=== PATIENT | male | born 1940 | race Caucasian/White ===

== ENCOUNTER 2020-03-06 20:12 | Observation (INO) | payer MEDICARE, OTHER, SELFPAY ==
[2020-03-06 20:16] VITALS: BP 136/84; PULSE 95; RESP 18; TEMP 36.7; O2SAT 97; BMI 29.8
--- NOTE | 2020-03-06 20:25 | USR_ITS ---
PROCEDURE INFORMATION: Exam: US Duplex Left Lower Extremity Veins, Limited Exam date and time: 03/06/2020 8:55 PM Age: 79 years old Clinical indication: Pain; Leg, upper and leg, lower; Left; Additional info: Pain/swelling TECHNIQUE: Imaging protocol: Real-time Duplex ultrasound of the Left Lower Extremity with 2-D noble scale, color Doppler flow and spectral waveform analysis with image documentation. Limited exam focused on the left lower extremity veins. COMPARISON: No relevant prior studies available. FINDINGS: Left deep veins: Complete occlusive deep vein thrombosis in the left common femoral, profunda femoral, femoral, popliteal, peroneal, and posterior tibial veins. Left superficial veins: Unremarkable. Saphenofemoral junction is patent without thrombus. Soft tissues: Unremarkable. Other findings: Occlusive thrombus in the greater saphenous vein near the junction. US/[place] [id number] IMPRESSION: Extensive occlusive deep vein thrombosis throughout the left lower extremity.
[2020-03-06 20:29] VITALS: PULSE 93
[2020-03-06 20:33] VITALS: BP 136/84; PULSE 76; RESP 18; O2SAT 98
--- NOTE | 2020-03-06 20:34 | USR_ITS ---
PROCEDURE INFORMATION: Exam: US Bilateral Noninvasive Physiologic Study of the Lower Extremity Arteries, Limited Exam date and time: 03/06/2020 8:55 PM Age: 79 years old Clinical indication: Pain; Leg, lower; Left; Additional info: Pain/swelling TECHNIQUE: Imaging protocol: Bilateral Limited bilateral noninvasive physiologic studies of lower extremity arteries. Images were documented and archived. Exam is limited. COMPARISON: No relevant prior studies available. FINDINGS: Right Ankle-Brachial Index: Brachial artery: 135/70 mm Hg Posterior tibial artery: 135 Dorsalis pedis artery: 135 JAMILAH: 1.0 Left Ankle-Brachial Index: Brachial artery: 135/70 mm Hg Posterior tibial artery: 135 Dorsalis pedis artery: 135 JAMILAH: 1.0 US/CV ankle brachial index 25187 IMPRESSION: No evidence of stenosis or occlusion.
[2020-03-06 20:57] LABS: Basophils # 0.1 10^3/uL (0.0-0.1); Basophils % 0.4 %; Eosinophils # 0.1 10^3/uL (0.0-0.8); Eosinophils % 0.7 %; Hematocrit 42.6 % (42.0-52.0); Hemoglobin 13.1 g/dL (11.7-16.6); Lymphocytes # 1.9 10^3/uL (0.8-4.8); Lymphocytes % 15.7 %; Mean Corpuscular HGB Conc 30.8 g/dL (30.0-36.0); Mean Corpuscular Hemoglobin 27.8 pg (28.0-34.0); Mean Corpuscular Volume 90.3 fL (80-94); Mean Platelet Volume 11.7 fL (7.4-10.4); Monocytes # 0.8 10^3/uL (0.2-0.9); Monocytes % 6.5 %; Neutrophils # 9.02 10^3/uL (1.8-7.7); Neutrophils % 76.2 %; Nucleated Red Blood Cells % 0 %; Platelet Count 203 10^3/cmm (130-400); Red Blood Count 4.72 10^6/uL (4.1-5.3); Red Cell Distribution Width 13.7 % (12.1-15.1); White Blood Count 11.8 10^3/uL (4.0-10.0)
[2020-03-06 21:06] LABS: INR 1.11 (0.8-1.2)
--- NOTE | 2020-03-06 21:07 | CTR_ITS ---
PROCEDURE INFORMATION: Exam: CT Angiography Chest With Contrast Exam date and time: 03/06/2020 9:26 PM Age: 79 years old Clinical indication: Abnormal findings; Abnormal diagnostic tests; Elevated d-dimer; Additional info: Dyspnea, positive d-dimer positive for dvt TECHNIQUE: Imaging protocol: Computed tomographic angiography of the chest with intravenous contrast. 3D rendering (Not supervised by radiologist): MIP and/or 3D reconstructed images were created by the technologist. Radiation optimization: All CT scans at this facility use at least one of these dose optimization techniques: automated exposure control; mA and/or kV adjustment per patient size (includes targeted exams where dose is matched to clinical indication); or iterative reconstruction. Contrast material: OMNI 350; Contrast volume: 68 ml; Contrast route: INTRAVENOUS (IV); COMPARISON: No relevant prior studies available. RADIATION DOSE METRICS: Total DLP (mGy-cm): 573.05 FINDINGS: Pulmonary arteries: Normal. No pulmonary emboli. Aorta: Unremarkable. No aortic aneurysm. No aortic dissection. Lungs: Minimal dependent atelectasis. Small focal scar in the peripheral right upper lobe. The lungs are otherwise clear. Pleural space: Unremarkable. No pneumothorax. No pleural effusion. Heart: Unremarkable. No cardiomegaly. No pericardial effusion. Lymph nodes: Unremarkable. No enlarged lymph nodes. Bones/joints: Thoracic curvature. No compression fracture. Soft tissues: Unremarkable. CT/CT angio chest PE protcl [id number] IMPRESSION: 1. No evidence for pulmonary embolus or other acute finding. Radiation Dose CTDIVOL = (mGy): DLP = 573.05 (mGy-cm)
[2020-03-06 21:13] LABS: Alanine Aminotransferase 12 U/L (0-41); Alkaline Phosphatase 116 IU/L (40-130); Anion Gap 14.9 (5-19); Aspartate Amino Transferase 16 U/L (0-40); Blood Urea Nitrogen 10 mg/dL (8-23); Calcium 9.1 mg/dL (8.5-10.5); Carbon Dioxide 25 mmol/L (22-29); Chloride 102 mmol/L (98-107); Globulin 3.6 g/dL (1.3-4.6); Glucose 128 mg/dL (65-115); Magnesium 2.2 mg/dL (1.7-2.3); Osmolality Calculated 287 mOsm/kg (285-295); Potassium 3.9 mmol/L (3.5-5.1); Sodium 138 mmol/L (136-145); Total Bilirubin 0.4 mg/dL (0.15-1.2); Total Protein 7.6 g/dL (6.6-8.7)
[2020-03-06] MEDS: iohexol 350 mg/mL 100 mL Btl IV (21:31)
[2020-03-06 21:38] LABS: D Dimer >= 20.00 ug/mIFEU (0-0.59)
[2020-03-06] MEDS: enoxaparin 100 mg/mL Syringe SUBCUT (21:45)
[2020-03-06 21:46] VITALS: BP 136/84; PULSE 81; RESP 18; O2SAT 97
[2020-03-06 22:16] VITALS: BP 125/89; PULSE 82; RESP 18; O2SAT 96
[2020-03-06 22:23] LABS: Reflex Lactate Order REFLEX LACTIC ORDERD
[2020-03-06 22:28] LABS: Troponin(5th) Baseline 12 ng/L (0-15)
[2020-03-06 22:29] LABS: Creatine Phosphokinase 135 U/L (39-308)
[2020-03-06 22:36] LABS: NT Pro B Type Natriuretic Pept 375 pg/mL (0-450)
--- NOTE | 2020-03-06 22:39 | W.ED.EXTPRO ---
HPI - Extremity Problem General: Chief complaint: Extremity Problem,Nontraumatic Stated complaint: LEFT LEG PAIN Time Seen by Provider: 03/06/20 20:17 Source: patient Mode of arrival: ambulatory Limitations: no limitations History of Present Illness: HPI Narrative: Mr. Leger is a nice 79-year-old male who comes in complaining of left lower extremity pain. He states the pain started yesterday and was mild but today it was worse when he woke up and has gotten much worse throughout the day. States the pain is primarily in his left upper thigh. The pain is worse when he bears weight or tries to ambulate. Patient states the pain is very tolerable and barely noticeable at rest now but overall it is worsened throughout the day. He denies any injury. He denies any fevers or scratches to the skin. He states the leg is swollen. He denies any numbness or weakness in his leg. Patient does seem comfortable at rest. He denies any history of DVT or PE. He denies any other medical problems other than prostate cancer and a chronic indwelling Blake catheter he states that he was told his prostate cancer was gone and he is only going in for surveillance treatment at this time. Patient has any chest pain, shortness of breath, palpitations, syncope or otherwise. Associated symptoms: Deny chest pain, fever(s) or rash Review of Systems Const: Denies: fever(s), chills, body aches, fatigue, malaise or diaphoresis Eyes: Denies: change in vision, blurry vision, photophobia, eye discomfort, eye discharge, eye redness or yellow eyes ENMT: Denies: throat pain, odynophagia, hoarseness, swelling of lips/tongue, ear or mastoid pain, ear discharge, change in hearing or nasal discharge Card: Denies: chest pain, palpitations, irregular heart rhythm, edema, lightheadedness, syncope, pre-syncope, dyspnea on exertion or orthopnea Resp: Denies: dyspnea, productive cough, non-productive cough, wheezing, hemoptysis or chest congestion GI: Denies: abdominal pain, nausea, vomiting, hematemesis, coffee ground emesis, heartburn, diarrhea, constipation, GI cramping, hematochezia or melena : Denies: flank pain, dysuria, urinary frequency, urinary urgency or hematuria Musc: Reports: extremity pain; Denies: neck pain, back pain, extremity swelling, joint pain, joint swelling, joint redness, joint warmth or joint stiffness Skin/Breast: Denies: rash, pruritus, erythema, skin pain or skin tenderness Neuro: Denies: headache(s), numbness in extremities, weakness in extremities, sensory changes, lack of coordination, difficulty walking, dizziness, vertigo, confusion, Slurred speech present or seizure-like activity Yariel/Lymph: Denies: easy bruising, easy bleeding, petechiae, purpura or enlarged lymph nodes All/Imm: Denies: urticaria, throat swelling, tongue swelling, facial swelling or acute wheezing PFSH ED PFSH: Medical History Prostate cancer Surgical History No pertinent past surgical history Family History Denies family history of CAD (coronary artery disease) Chronic kidney disease (CKD) Bleeding disorder Social History Smoking and tobacco status: never smoked Alcohol intake: never Substance/Drug Use: never Housing: House Physical Exam Const: COMMON NORMALS: no acute distress, patient oriented x3, no limitations and alert GENERAL APPEARANCE: cooperative HENMT: COMMON NORMALS: normocephalic, atraumatic, external ears normal, EAC's normal and Normal external nose present HEAD & SCALP: normal to inspection, normocephalic and atraumatic FACE & SINUS: normal facial exam and face symmetric NOSE: Normal external nose present and Normal nares present EXTERNAL EAR: Yes external ears normal EXTERNAL AUDITORY CANAL: EAC's normal MOUTH: Normal oral and palatal mucosa present, lip normal and tongue normal Eye: COMMON NORMALS: Equal, round and reactive pupils present and conjunctivae normal GENERAL EYE: appearance normal, both eyes and all related structures ALIGNMENT: Yes alignment normal PERIORBITAL: periorbital findings normal EYELID: eyelids normal CONJUNCTIVA: Yes conjunctivae normal SCLERA: sclerae normal PUPIL: Yes Equal, round and reactive pupils present Neck/C-Spine: COMMON NORMALS: full ROM, no lymphadenopathy, supple, no meningeal signs and no JVD GENERAL: Yes normal visual inspection and Yes trachea midline Chest: COMMONS NORMALS: normal inspection of the chest and normal palpation of entire chest wall Resp: COMMON NORMALS: normal respiratory effort, No retractions, No use of accessory muscles and clear to auscultation bilaterally EFFORT & INSPECTION: Yes able to speak in complete sentences and Yes symmetric chest movement AUSCULTATION: clear to auscultation bilaterally, no crackles, no rales, no rhonchi and no wheezes Cardio: COMMON NORMALS: no JVD, regular rate, regular rhythm, S1 normal heart sound present and S2 normal heart sound present RATE: regular rate RHYTHM: regular rhythm HEART SOUNDS: S1 normal heart sound present, S2 normal heart sound present, no click, no gallops, no murmurs and no rubs GI: COMMON NORMALS: Soft to palpation and No hepatosplenomegaly present PALPATION: Yes Soft to palpation, No Tenderness to palpation present (GI), No Guarding due to palpation present (GI), No Rigid due to palpation, Yes No hepatosplenomegaly present, No Hernia present, No Palpable mass present and No Pulsatile mass present : COMMON NORMALS: Yes no CVA tenderness BLADDER/KIDNEY EXAM: Yes no CVA tenderness Back/Pelvis: COMMON NORMALS: no CVA tenderness, thoracic and lumbar spine normal to inspection, no thoracic nor lumbar tenderness and thoraco-lumbar ROM normal Extremity: COMMON NORMALS: full ROM, capillary refill normal, no joint enlargement and no calf tenderness NARRATIVE EXTREMITY EXAM: Left lower extremity with swelling and edema. No tenderness to palpation. Swelling is from mid thigh all the way down. Neuro: COMMON NORMALS: patient oriented x3, CN's II-XII intact bilaterally, moves all extremities, no focal motor deficits and no sensory deficits noted SENSORIUM/ORIENTATION: Yes alert MENINGEAL SIGNS: Yes no meningeal signs SPEECH: speech normal Psych: COMMON NORMALS: mental status grossly normal, Normal thought process present, cooperative, normal affect, speech normal and activity/motor behavior normal SPEECH: Yes normal speech THOUGHT PROCESS: Normal thought process present Skin: COMMON NORMALS: no rashes or lesions noted, turgor normal, no jaundice, no petechiae and no mottling GENERAL SKIN EXAM: no rashes or lesions noted and turgor normal Course Vital Signs: Vital signs: Vital Signs Temperature 98.7 F 03/07/20 01:55 Pulse Rate 65 12/16/20 01:55 Respiratory Rate 18 03/07/20 01:55 Blood Pressure 129/79 03/07/20 01:55 Pulse Oximetry 97 03/07/20 01:55 MDM - Extremity (Nontraumatic) MDM Narrative: Medical decision making narrative: The case was reviewed with Dr. Huston, on-call for vascular surgery at [facility]. He does not think the patient needs further evaluation for phlegmisa cerulean dolens. Patient has no pain at rest, his lactic acid has resolved returned to normal and his CK is normal. Dr. Huston felt this can be treated just like a normal DVT as he has no PE evidence. The patient lives alone and has too much pain to walk right now so he will need to be admitted for pain control and for anticoagulation. The case was reviewed with Dr. Serrano and he agrees to admission for further evaluation and care. Lab Data: Labs: Lab Results 03/06/20 03/06/20 03/06/20 Range/Units 20:33 20:33 20:33 WBC 11.8 H (4.0-10.0) 10^3/ uL RBC 4.72 (4.1-5.3) 10^6/u L Hgb 13.1 (11.7-16.6) g/dL Hct 42.6 (42.0-52.0) % MCV 90.3 (80-94) fL MCH 27.8 L (28.0-34.0) pg MCHC 30.8 (30.0-36.0) g/dL RDW 13.7 (12.1-15.1) % Plt Count 203 (130-400) 10^3/c mm MPV 11.7 H (7.4-10.4) fL Neut % (Auto) 76.2 % Lymph % (Auto) 15.7 % Branch % (Auto) 6.5 % Eos % (Auto) 0.7 % Baso % (Auto) 0.4 % Neut # (Auto) 9.02 H (1.8-7.7) 10^3/u L Lymph # (Auto) 1.9 (0.8-4.8) 10^3/u L Branch # (Auto) 0.8 (0.2-0.9) 10^3/u L Eos # (Auto) 0.1 (0.0-0.8) 10^3/u L Baso # (Auto) 0.1 (0.0-0.1) 10^3/u L Nucleated RBC % (a uto) 0 % Nucleated RBCs # 0.0 /100WBC PT 14.70 (12.1-14.9) SECO NDS INR 1.11 (0.8-1.2) APTT 28.0 (23.9-36.7) SECO NDS D-Dimer >= 20.00 H (0-0.59) ug/mIFE U Sodium 138 (136-145) mmol/L Potassium 3.9 (3.5-5.1) mmol/L Chloride 102 (98-107) mmol/L Carbon Dioxide 25 (22-29) mmol/L Anion Gap 14.9 (5-19) BUN 10 (8-23) mg/dL Creatinine 0.8 (0.7-1.2) mg/dL GFR Calculation Not Reportable Glucose 128 H (65-115) mg/dL Calculated Osmolal ity 287 (285-295) mOsm/k g Lactic Acid (0.5-2.2) mmol/L Lactic Acid (Sepsi s) (0.5-2.2) mmol/L Calcium 9.1 (8.5-10.5) mg/dL Magnesium 2.2 (1.7-2.3) mg/dL Total Bilirubin 0.4 (0.15-1.2) mg/dL AST 16 (0-40) U/L ALT 12 (0-41) U/L Alkaline Phosphata se 116 (40-130) IU/L Creatine Kinase (39-308) U/L Troponin T Baselin e (0-15) ng/L Troponin T 120 Min shinnecock (0-15) ng/L Delta Troponin T (0-10) ABS# NT-Pro-B Natriuret Pep (0-450) pg/mL Total Protein 7.6 (6.6-8.7) g/dL Albumin 4.0 (3.5-5.2) g/dL Globulin 3.6 (1.3-4.6) g/dL Vitamin B12 (232-1245) pg/mL 03/06/20 03/06/20 03/06/20 Range/Units 20:33 20:33 20:33 WBC (4.0-10.0) 10^3/ uL RBC (4.1-5.3) 10^6/u L Hgb (11.7-16.6) g/dL Hct (42.0-52.0) % MCV (80-94) fL MCH (28.0-34.0) pg MCHC (30.0-36.0) g/dL RDW (12.1-15.1) % Plt Count (130-400) 10^3/c mm MPV (7.4-10.4) fL Neut % (Auto) % Lymph % (Auto) % Branch % (Auto) % Eos % (Auto) % Baso % (Auto) % Neut # (Auto) (1.8-7.7) 10^3/u L Lymph # (Auto) (0.8-4.8) 10^3/u L Branch # (Auto) (0.2-0.9) 10^3/u L Eos # (Auto) (0.0-0.8) 10^3/u L Baso # (Auto) (0.0-0.1) 10^3/u L Nucleated RBC % (a uto) % Nucleated RBCs # /100WBC PT (12.1-14.9) SECO NDS INR (0.8-1.2) APTT (23.9-36.7) SECO NDS D-Dimer (0-0.59) ug/mIFE U Sodium (136-145) mmol/L Potassium (3.5-5.1) mmol/L Chloride (98-107) mmol/L Carbon Dioxide (22-29) mmol/L Anion Gap (5-19) BUN (8-23) mg/dL Creatinine (0.7-1.2) mg/dL GFR Calculation Glucose (65-115) mg/dL Calculated Osmolal ity (285-295) mOsm/k g Lactic Acid 3.0 H (0.5-2.2) mmol/L Lactic Acid (Sepsi s) (0.5-2.2) mmol/L Calcium (8.5-10.5) mg/dL Magnesium (1.7-2.3) mg/dL Total Bilirubin (0.15-1.2) mg/dL AST (0-40) U/L ALT (0-41) U/L Alkaline Phosphata se (40-130) IU/L Creatine Kinase (39-308) U/L Troponin T Baselin e 12 (0-15) ng/L Troponin T 120 Min shinnecock (0-15) ng/L Delta Troponin T (0-10) ABS# NT-Pro-B Natriuret Pep 375 (0-450) pg/mL Total Protein (6.6-8.7) g/dL Albumin (3.5-5.2) g/dL Globulin (1.3-4.6) g/dL Vitamin B12 (232-1245) pg/mL 03/06/20 03/06/20 03/06/20 Range/Units 20:33 22:15 22:15 WBC (4.0-10.0) 10^3/ uL RBC (4.1-5.3) 10^6/u L Hgb (11.7-16.6) g/dL Hct (42.0-52.0) % MCV (80-94) fL MCH (28.0-34.0) pg MCHC (30.0-36.0) g/dL RDW (12.1-15.1) % Plt Count (130-400) 10^3/c mm MPV (7.4-10.4) fL Neut % (Auto) % Lymph % (Auto) % Branch % (Auto) % Eos % (Auto) % Baso % (Auto) % Neut # (Auto) (1.8-7.7) 10^3/u L Lymph # (Auto) (0.8-4.8) 10^3/u L Branch # (Auto) (0.2-0.9) 10^3/u L Eos # (Auto) (0.0-0.8) 10^3/u L Baso # (Auto) (0.0-0.1) 10^3/u L Nucleated RBC % (a uto) % Nucleated RBCs # /100WBC PT (12.1-14.9) SECO NDS INR (0.8-1.2) APTT (23.9-36.7) SECO NDS D-Dimer (0-0.59) ug/mIFE U Sodium (136-145) mmol/L Potassium (3.5-5.1) mmol/L Chloride (98-107) mmol/L Carbon Dioxide (22-29) mmol/L Anion Gap (5-19) BUN (8-23) mg/dL Creatinine (0.7-1.2) mg/dL GFR Calculation Glucose (65-115) mg/dL Calculated Osmolal ity (285-295) mOsm/k g Lactic Acid (0.5-2.2) mmol/L Lactic Acid (Sepsi s) (0.5-2.2) mmol/L Calcium (8.5-10.5) mg/dL Magnesium (1.7-2.3) mg/dL Total Bilirubin (0.15-1.2) mg/dL AST (0-40) U/L ALT (0-41) U/L Alkaline Phosphata se (40-130) IU/L Creatine Kinase 135 (39-308) U/L Troponin T Baselin e (0-15) ng/L Troponin T 120 Min shinnecock 12.44 (0-15) ng/L Delta Troponin T 0.44 (0-10) ABS# NT-Pro-B Natriuret Pep (0-450) pg/mL Total Protein (6.6-8.7) g/dL Albumin (3.5-5.2) g/dL Globulin (1.3-4.6) g/dL Vitamin B12 452 (232-1245) pg/mL 03/06/ Range/Units 23:21 WBC (4.0-10.0) 10^3/ uL RBC (4.1-5.3) 10^6/u L Hgb (11.7-16.6) g/dL Hct (42.0-52.0) % MCV (80-94) fL MCH (28.0-34.0) pg MCHC (30.0-36.0) g/dL RDW (12.1-15.1) % Plt Count (130-400) 10^3/c mm MPV (7.4-10.4) fL Neut % (Auto) % Lymph % (Auto) % Branch % (Auto) % Eos % (Auto) % Baso % (Auto) % Neut # (Auto) (1.8-7.7) 10^3/u L Lymph # (Auto) (0.8-4.8) 10^3/u L Branch # (Auto) (0.2-0.9) 10^3/u L Eos # (Auto) (0.0-0.8) 10^3/u L Baso # (Auto) (0.0-0.1) 10^3/u L Nucleated RBC % (a uto) % Nucleated RBCs # /100WBC PT (12.1-14.9) SECO NDS INR (0.8-1.2) APTT (23.9-36.7) SECO NDS D-Dimer (0-0.59) ug/mIFE U Sodium (136-145) mmol/L Potassium (3.5-5.1) mmol/L Chloride (98-107) mmol/L Carbon Dioxide (22-29) mmol/L Anion Gap (5-19) BUN (8-23) mg/dL Creatinine (0.7-1.2) mg/dL GFR Calculation Glucose (65-115) mg/dL Calculated Osmolal ity (285-295) mOsm/k g Lactic Acid (0.5-2.2) mmol/L Lactic Acid (Sepsi s) 1.2 (0.5-2.2) mmol/L Calcium (8.5-10.5) mg/dL Magnesium (1.7-2.3) mg/dL Total Bilirubin (0.15-1.2) mg/dL AST (0-40) U/L ALT (0-41) U/L Alkaline Phosphata se (40-130) IU/L Creatine Kinase (39-308) U/L Troponin T Baselin e (0-15) ng/L Troponin T 120 Min shinnecock (0-15) ng/L Delta Troponin T (0-10) ABS# NT-Pro-B Natriuret Pep (0-450) pg/mL Total Protein (6.6-8.7) g/dL Albumin (3.5-5.2) g/dL Globulin (1.3-4.6) g/dL Vitamin B12 (232-1245) pg/mL Imaging Data^: CT Chest: Radiologist's impression: [address] [place] [address] CT Scan Report Signed Patient: Mir Leger Unit #: [id number] : 1940 Age/Sex: 79 / M ADM Date: 03/06/20 Loc: ER Room/Bed: Attending Dr: Ordering Provider/Ordering MD: Amara Barbosa DO Date of Service: 03/06/20 Procedure(s): CT angio chest PE protcl [id number] Accession Number(s): [id number] Report Number: [id number] PROCEDURE INFORMATION: Exam: CT Angiography Chest With Contrast Exam date and time: 03/06/2020 9:26 PM Age: 79 years old Clinical indication: Abnormal findings; Abnormal diagnostic tests; Elevated d-dimer; Additional info: Dyspnea, positive d-dimer positive for dvt TECHNIQUE: Imaging protocol: Computed tomographic angiography of the chest with intravenous contrast. 3D rendering (Not supervised by radiologist): MIP and/or 3D reconstructed images were created by the technologist. Radiation optimization: All CT scans at this facility use at least one of these dose optimization techniques: automated exposure control; mA and/or kV adjustment per patient size (includes targeted exams where dose is matched to clinical indication); or iterative reconstruction. Contrast material: OMNI 350; Contrast volume: 68 ml; Contrast route: INTRAVENOUS (IV); COMPARISON: No relevant prior studies available. RADIATION DOSE METRICS: Total DLP (mGy-cm): 573.05 FINDINGS: Pulmonary arteries: Normal. No pulmonary emboli. Aorta: Unremarkable. No aortic aneurysm. No aortic dissection. Lungs: Minimal dependent atelectasis. Small focal scar in the peripheral right upper lobe. The lungs are otherwise clear. Pleural space: Unremarkable. No pneumothorax. No pleural effusion. Heart: Unremarkable. No cardiomegaly. No pericardial effusion. Lymph nodes: Unremarkable. No enlarged lymph nodes. Bones/joints: Thoracic curvature. No compression fracture. Soft tissues: Unremarkable. CT/CT angio chest PE protcl [id number] IMPRESSION: 1. No evidence for pulmonary embolus or other acute finding. Radiation Dose CTDIVOL = (mGy): DLP = 573.05 (mGy-cm) Dictated By: Bryan Stallworth Signed By: Bryan Stallworth Signed Date/Time: 03/06/202202 DD/ 01 US: Radiologist's impression: [facility] [address] [place] [address]. [place] [address] Ultrasound Report Signed Patient: Mir Leger #: [id number] : 3Acct#:[id number] Age/Sex: 79 / MADM Date: 03/06/20 Loc: ERRoom/Bed: Attending Dr: Ordering Provider/Ordering MD: Amara Barbosa DO Date of Service: 03/06/20 Procedure(s): CV ankle brachial index 43147 Accession Number(s): [id number] Report Number: [id number] PROCEDURE INFORMATION: Exam: US Bilateral Noninvasive Physiologic Study of the Lower Extremity Arteries, Limited Exam date and time: 03/06/2020 8:55 PM Age: 79 years old Clinical indication: Pain; Leg, lower; Left; Additional info: Pain/swelling TECHNIQUE: Imaging protocol: Bilateral Limited bilateral noninvasive physiologic studies of lower extremity arteries. Images were documented and archived. Exam is limited. COMPARISON: No relevant prior studies available. FINDINGS: Right Ankle-Brachial Index: Brachial artery: 135/70 mm Hg Posterior tibial artery: 135 Dorsalis pedis artery: 135 JAMILAH: 1.0 Left Ankle-Brachial Index: Brachial artery: 135/70 mm Hg Posterior tibial artery: 135 Dorsalis pedis artery: 135 JAMILAH: 1.0 US/CV ankle brachial index 63399 IMPRESSION: No evidence of stenosis or occlusion. Dictated By:Bryan Stallworth Signed By:Terrance Stallworth Date/Time:03/06/202122 DD/ 21 US Vascular: Radiologist's impression: [facility] [address] [facility] [place] [address] Ultrasound Report Signed with Ciera Patient: Mir Leger #: [id number] : 1940cct#:[id number] Age/Sex: 79 / MADM Date: 03/06/20 Loc: ERRoom/Bed: Attending Dr: Ordering Provider/Ordering MD: Amara Barbosa DO Date of Service: 03/06/20 Procedure(s): [place] [address] Accession Number(s): [id number] Report Number: [id number] ADDENDUM US/[place] [address] THIS REPORT CONTAINS FINDINGS THAT MAY BE CRITICAL TO PATIENT CARE. The findings were verbally communicated via telephone conference with Amara Barbosa at 9:34 PM [employer] on 03/06/2020. The findings were acknowledged and understood. Addendum Dictated By: Bryan Stallworth Addendum Signed By: Terrance Stallworth Date/Time:03/06/202134 Addendum Cosigned By: PROCEDURE INFORMATION: Exam: US Duplex Left Lower Extremity Veins, Limited Exam date and time: 03/06/2020 8:55 PM Age: 79 years old Clinical indication: Pain; Leg, upper and leg, lower; Left; Additional info: Pain/swelling TECHNIQUE: Imaging protocol: Real-time Duplex ultrasound of the Left Lower Extremity with 2-D noble scale, color Doppler flow and spectral waveform analysis with image documentation. Limited exam focused on the left lower extremity veins. COMPARISON: No relevant prior studies available. FINDINGS: Left deep veins: Complete occlusive deep vein thrombosis in the left common femoral, profunda femoral, femoral, popliteal, peroneal, and posterior tibial veins. Left superficial veins: Unremarkable. Saphenofemoral junction is patent without thrombus. Soft tissues: Unremarkable. Other findings: Occlusive thrombus in the greater saphenous vein near the junction. US/[place] [address] IMPRESSION: Extensive occlusive deep vein thrombosis throughout the left lower extremity. Dictated By:Bryan Stallworth Signed By:Terrance Stallworth Date/Time:03/06/202131 DD/ 30 Discharge Plan Discharge Patient Disposition: Admitted As Inpatient Admit Provider: Arnold Serrano Clinical Impression: DVT (deep venous thrombosis) Condition: Stable Coding Level of Care Code ED Digitizer for Chg Fwd Exam Comprehensive
[2020-03-06] MEDS: sodium chloride 0.9% 1,000 ML 999 ML IV (22:58)
[2020-03-06 23:08] LABS: Troponin 5 2HR 12.44 ng/L (0-15); Troponin 5 2HR Delta 0.44 ABS# (0-10)
[2020-03-06 23:50] VITALS: BP 154/88; RESP 16; O2SAT 97
[2020-03-06 23:58] LABS: Lactic Acid level (Lactate) 1.2 mmol/L (0.5-2.2)
[2020-03-07] VITALS (10 sets, daily range): BP systolic 108–156; BP diastolic 69–90; PULSE 65–78; RESP 16–18; TEMP 36.6–37.1; O2SAT 96–98
--- NOTE | 2020-03-07 00:37 | PM.HP ---
Providers/Chief Complaint Chief Complaint: LEFT LEG PAIN History of Present Illness Mir Leger is a 79 year old male who presented to the hospital with chief complaint of left leg pain and swelling. Patient is stating that his symptoms started about yesterday around 4pm when he noticed that his leg is swollen and was getting more painful. Before that he did not notice any pain or extreme leg swelling. His pain was worse to the point he was not able to bear any weight and walk independently. At baseline he uses a cane for ambulation because of right knee osteoarthritis. In 2019 he received radiotherapy for prostate cancer and recently stopped taking tamsulosin and dutasteride, has chronic indwelling Blake catheter because of urethral stricture. Denies chest pain, fever, nausea, vomiting shortness of breath, PND, orthopnea. Diagnosis in the ER revealed left leg DVT with thrombophlebitis, Dr. Fermin called vascular surgeon at [facility] to see if it require any intervention, vascular surgeon recommended anticoagulation as regular DVT. No hemodynamic compromise, I would request BNP however troponins are not significantly high Review of Systems Const: Denies: fever(s), chills or body aches Eyes: Denies: change in vision ENMT: Denies: throat pain Card: Denies: chest pain Resp: Denies: dyspnea GI: Denies: abdominal pain : Denies: flank pain Musc: Reports: extremity swelling Skin/Breast: Reports: new lesions Neuro: Denies: headache(s) Psych: Denies: anxiety Endo: Denies: polyuria Yariel/Lymph: Denies: easy bruising All/Imm: Denies: urticaria Medications/Allergies Home Medications Medication Instructions Recorded Confirmed Last Taken Type dutasteride 0.5 mg capsule 0.5 mg PO DAILY 12/12/19 12/12/19 Unknown History tamsulosin 0.4 mg capsule 0.8 mg PO DAILY cap 12/12/19 12/12/19 Unknown History Allergies Allergy/AdvReac Type Severity Reaction Status Date / Time No Known Allergies Allergy Verified 12/12/19 16:35 PFSH Acute PFSH: Medical History Prostate cancer Surgical History No pertinent past surgical history Family History Denies family history of CAD (coronary artery disease) Chronic kidney disease (CKD) Bleeding disorder Social History Smoking and tobacco status: never smoked Alcohol intake: never Substance/Drug Use: never Housing: House Vitals/I&O/Wt Last Vital Signs Temp 98.0 F 03/06/20 20:16 Pulse 82 03/06/20 22:16 Resp 16 03/06/20 23:50 BP 154/88 03/06/20 23:50 Pulse Ox 97 03/06/20 23:50 Weight last 48 hrs Weight 99.79 kg Physical Exam Narrative: EXAM NARRATIVE: Very pleasant elderly male currently saturating well on room air when I entered the room he was lying comfortable Appears well-hydrated No active distress No active chest pain or shortness of breath S1, S2 no tachycardia or signs of heart failure Abdomen soft nontender bowel sound present No active rhonchi or crackles no acute respiratory distress Left lower extremity edematous with signs of thrombophlebitis, no active cellulitis No neurological deficit NIH 0, GCS 15 Awake alert oriented x3 Appropriate mood and affect Skin does not show any sign ischemia gangrene or ulcer Data : 03/06/20 20:33 03/06/20 20:33 Micro: Microbiology 03/06/20 20:53 Blood Culture - Preliminary Blood SPECIMEN COLLECTED 03/06/20 20:33 Blood Culture - Preliminary Blood SPECIMEN COLLECTED A&P Assessment and plan (1) DVT femoral (deep venous thrombosis) with thrombophlebitis: Status: Acute (2) Left leg DVT: Status: Acute (3) Prostate cancer: Status: Acute Additional A&P Information Left leg acute DVT Patient has history of prostate cancer which is in remission He is not very active at baseline uses cane for ambulation because of right knee osteoarthritis, no other history of cancer, Previous colonoscopy revealed polyps which were benign Patient is not endorsing fever night sweats weight loss I would start him on Lovenox therapeutic dose every 12h Reviewed Doppler studies, JAMILAH, lab work Requested BNP troponin not similarly elevated, will request echo, CTA did not reveal PE I do believe he is at risk of progression of proximal DVT, he should be considered for IVC filter placement, kindly consider cardiology consult in the morning Prostate cancer currently in remission Has chronic indwelling catheter No acute decompensation Full code Cardiac diet DVT prophylaxis not needed currently on therapeutic dose of Lovenox Attestations Medical Necessity Statement*: Anticipating discharge in less than 2 midnights, acute DVT management, will need physical therapy evaluation in the morning, Time Spent in Patient Care: (>than 50% of time spent in counselling and/or direct pt care on unit). 45mins Coding Level of Care Code Acute Health And Safety Manager for Chg Fwd Diagnoses DVT femoral (deep venous thrombosis) with thrombophlebitis I82.419 Left leg DVT I82.402 Prostate cancer C61
[2020-03-07 02:02] LABS: Vitamin B12 452 pg/mL (232-1245)
--- NOTE | 2020-03-07 02:11 | PC.NURSE ---
Addendum entered by Nirmala Murray RN 03/07/20 05:57: Patient has leg bag ward from home that he states is changed out every 30 days. Original Note: Patient arrived to the floor from the ED after report was received via phone. Patient is alert and oriented. Patient educated not to get up without assistance and verbalized understanding. Patient complains of pain to the left thigh, but does not complain of any other pain or issues. He has no chest pain or shortness of breath. He has been oriented to his room and has call light within reach.
[2020-03-07 03:40] LABS: Anion Gap 12.4 (5-19); Blood Urea Nitrogen 8 mg/dL (8-23); Calcium 8.7 mg/dL (8.5-10.5); Carbon Dioxide 23 mmol/L (22-29); Chloride 104 mmol/L (98-107); Glucose 108 mg/dL (65-115); Osmolality Calculated 281 mOsm/kg (285-295); Potassium 3.4 mmol/L (3.5-5.1); Sodium 136 mmol/L (136-145)
[2020-03-07 03:50] LABS: NT Pro B Type Natriuretic Pept 389 pg/mL (0-450)
--- NOTE | 2020-03-07 05:04 | PC.NURSE ---
Patient is currently resting in bed with eyes closed. Will monitor.
--- NOTE | 2020-03-07 09:54 | CT_ITS ---
WS: [id number] CT ABDOMEN AND PELVIS NONCONTRAST HISTORY: left leg dvt, prostate cancer. TECHNIQUE: Imaging performed through the abdomen and pelvis. Coronal and sagittal reformats are submi tted. All CT scans at [facility] use at least one of these dose optimization techniques: automated exposure control; mA and/or kV adjustment per patient size (includes targeted exams where d ose is matched to clinical indication); or iterative reconstruction. DLP: 998.42 mGy.cm COMPARISON: None available. Lower thorax: Lung bases are clear. Visualized heart is normal. No hiatal hernia. Liver: Normal size liver. No bile duct dilatation or mass appreciated. Gallbladder: Normal gallbladder. Pancreas: Normal size and attenuation. Normal pancreatic duct. No pancreatitis or mass. Spleen: Normal. Adrenal glands: Normal. No mass. Right kidney: Normal size kidney. Increased density within the renal pelvis and ureter is probably ex cretion of contrast from a prior CT angiogram. No obstruction. Left kidney: Increased density within the kidneys from a prior contrast injection. No obstruction. Aorta: Mild atherosclerosis abdominal aorta with no aneurysm. No free fluid, intraperitoneal air or significant lymphadenopathy. GI tract: No evidence for appendicitis. There is no obstruction or wall thickening. No significant di verticular disease. Abdominal wall: A few small foci of air within the abdominal wall subcutaneous layer from prior injec tions. Pelvis: Urinary bladder is catheterized. There is high density contrast in the aorta narrows bladder from the prior CT angiogram. Prostate gland is markedly enlarged and displacing the urinary bladder a nd also the Blake catheter within the urinary bladder. Prostate gland measures 7.2 x 6.5 cm and conta ins central treatment seeds. Significant soft tissue inflammation involving the LEFT inguinal region and the LEFT groin. There is infiltration of soft tissue through the fat and surrounding the muscles of the LEFT hip of uncertain etiology. May be from cellulitis or prior interventional procedure. Osseous structures: Mild scoliosis of the lumbar spine. Incompletely visualized lytic area in the med ullary cavity of the proximal LEFT femur of uncertain etiology. There may be similar findings on the RIGHT. No osteoblastic disease. CT/CT abdomen pelvis wo con [id number] IMPRESSION: 1. No acute abdominal or pelvic abnormalities are identified. 2. Blake catheter in the urinary bladder with marked prostate gland enlargemen t. 3. No adenopathy or free fluid. 4. Significant inflammatory changes involving the soft tissues of the LEFT ing uinal region and over the LEFT hip. Consider cellulitis or prior interventional procedure. May be related to the patient's known LEFT lower extremity DVT.
[2020-03-07] MEDS: sennosides-docusate Tablet 1 TAB PO (10:06)
[2020-03-07] MEDS: enoxaparin 100 mg/mL Syringe SUBCUT (10:06)
--- NOTE | 2020-03-07 11:29 | PM.TDS ---
Transfer Summary Providers Date of Admission: 03/07/20 00:45 Date of Discharge: 03/07/20 Attending Provider at Admission: Arnold Serrano MD Attending Provider at Transfer: Partha Grullon MD Anticipated Date of Transfer: Anticipated date of transfer: 03/07/20 Receiving Facility & Provider: Receiving Provider: [] Receiving facility: [] Diagnoses at Discharge Discharge Diagnosis (1) DVT femoral (deep venous thrombosis) with thrombophlebitis: Status: Acute (2) Left leg DVT: Status: Acute (3) Prostate cancer: Status: Acute Reason for Visit Reason for Visit: LEFT LEG PAIN Hospital Course Hospital Course This is a 79-year-old male, with a past medical history of prostate cancer, status post brachytherapy, currently on tamsulosin and dutasteride, chronic Blake due to urethral stricture currently in remission, who is managed by oncologist and urologist at [facility] in [place], who presents to [facility] for sudden left lower extremity swelling Patient was admitted to [facility] for left lower extremity swelling secondary to extensive DVT Left lower extremity venous ultrasound showed: Left deep veins: Complete occlusive deep vein thrombosis in the left common femoral, profunda femoral, femoral, popliteal, peroneal, and posterior tibial veins. Left superficial veins: Unremarkable. Saphenofemoral junction is patent without thrombus. Soft tissues: Unremarkable. Other findings: Occlusive thrombus in the greater saphenous vein near the junction. CT angiogram of the chest was negative for PE, no significant delta troponin Clinically patient's left leg was quite swollen from the ankle all the way up to the hip, white, quite tight, and heavy with significant pain with range of motion given ultrasound findings I was quite concerned for his risk of phlegmasia and loss of left lower limb. I clinically believe that patient would benefit from a catheter directed thrombectomy procedure. I have spoken to vascular surgery at [facility], I spoke to the physician payroll human resources assistant, who agreed for the transfer. Patient was transferred on a heparin drip, kept n.p.o., and IV fluids. Of note patient CT scan of the abdomen pelvis on transfer showed: Prostate gland is markedly enlarged and displacing the urinary bladder and also the Blake catheter within the urinary bladder. Prostate gland measures 7.2 x 6.5 cm and contains central treatment seeds. PSA 0.006 Significant soft tissue inflammation involving the LEFT inguinal region and the LEFT groin. There is infiltration of soft tissue through the fat and surrounding the muscles of the LEFT hip of uncertain etiology. May be from cellulitis or prior interventional procedure. Osseous structures: Mild scoliosis of the lumbar spine. Incompletely visualized lytic area in the medullary cavity of the proximal LEFT femur of uncertain etiology. There may be similar findings on the RIGHT. No osteoblastic disease Given findings of above, would have patient follow-up with oncology at [facility], for lytic areas, and markedly enlarged prostate There is no clinical signs of cellulitis, holding off on antibiotic therapy TS Data Data Completed and Pending: Completed Studies During Hospitalization Category Date Time Status CT abdomen pelvis wo con [id number] Stat Cat Scan 03/07/20 09:[address] angio chest PE protcl [id number] Stat Cat Scan 03/06/20 21:07 Completed CV ankle brachial index [id number] Stat Ultrasound 03/06/20 20:34 [place] [id number] Stat Ultrasound 03/06/20 20:25 Completed Pending at discharge Category Date Time Status CT abdomen pelvis wo con [id number] Stat Cat Scan 03/07/20 11:00 Taken Blood Culture Sta t Lab 03/06/20 20:53 Results Platelet Count Q2 D Lab 03/09/20 04:00 Ordered Platelet Count Q2 D Lab 03/11/20 04:00 Ordered Prostate Specific Antigen Stat Lab 03/07/20 03:11 Received SARS Covid-2 Anti gen Routine Lab 03/07/20 10:45 Uncollected SARS Covid-2 Anti gen Stat Lab 03/07/20 10:46 Ordered Labs from last 24 hours 03/07/20 03/07/20 03/07/20 03:11 03:11 03:11 WBC RBC Hgb Hct MCV MCH MCHC RDW Plt Count MPV Neut % (Auto) Lymph % (Auto) Lyman % (Auto) Eos % (Auto) Baso % (Auto) Neut # (Auto) Lymph # (Auto) Lyman # (Auto) Eos # (Auto) Baso # (Auto) Nucleated RBC % (a uto) Nucleated RBCs # PT INR APTT D-Dimer Sodium 136 Potassium 3.4 L Chloride 104 Carbon Dioxide 23 Anion Gap 12.4 BUN 8 Creatinine 0.7 GFR Calculation Not Reportable Glucose 108 Calculated Osmolal ity 281 L Lactic Acid Lactic Acid (Sepsi s) Calcium 8.7 Magnesium Total Bilirubin AST ALT Alkaline Phosphata se Creatine Kinase Troponin T Baselin e Troponin T 120 Min [place] Delta Troponin T NT-Pro-B Natriuret Pep 389 Total Protein Albumin Globulin Prostate Specific Ag Pending Vitamin B12 03/06/20 03/06/20 03/06/20 23:21 22:15 22:15 WBC RBC Hgb Hct MCV MCH MCHC RDW Plt Count MPV Neut % (Auto) Lymph % (Auto) Lyman % (Auto) Eos % (Auto) Baso % (Auto) Neut # (Auto) Lymph # (Auto) Lyman # (Auto) Eos # (Auto) Baso # (Auto) Nucleated RBC % (a uto) Nucleated RBCs # PT INR APTT D-Dimer Sodium Potassium Chloride Carbon Dioxide Anion Gap BUN Creatinine GFR Calculation Glucose Calculated Osmolal ity Lactic Acid Lactic Acid (Sepsi s) 1.2 Calcium Magnesium Total Bilirubin AST ALT Alkaline Phosphata se Creatine Kinase Troponin T Baselin e Troponin T 120 Min [place] 12.44 Delta Troponin T 0.44 NT-Pro-B Natriuret Pep Total Protein Albumin Globulin Prostate Specific Ag Vitamin B12 452 03/06/20 03/06/20 03/06/20 20:33 20:33 20:33 WBC RBC Hgb Hct MCV MCH MCHC RDW Plt Count MPV Neut % (Auto) Lymph % (Auto) Lyman % (Auto) Eos % (Auto) Baso % (Auto) Neut # (Auto) Lymph # (Auto) Lyman # (Auto) Eos # (Auto) Baso # (Auto) Nucleated RBC % (a uto) Nucleated RBCs # PT INR APTT D-Dimer Sodium Potassium Chloride Carbon Dioxide Anion Gap BUN Creatinine GFR Calculation Glucose Calculated Osmolal ity Lactic Acid Lactic Acid (Sepsi s) Calcium Magnesium Total Bilirubin AST ALT Alkaline Phosphata se Creatine Kinase 135 Troponin T Baselin e 12 Troponin T 120 Min [place] Delta Troponin T NT-Pro-B Natriuret Pep 375 Total Protein Albumin Globulin Prostate Specific Ag Vitamin B12 03/06/20 03/06/20 03/06/20 20:33 20:33 20:33 WBC RBC Hgb Hct MCV MCH MCHC RDW Plt Count MPV Neut % (Auto) Lymph % (Auto) Lyman % (Auto) Eos % (Auto) Baso % (Auto) Neut # (Auto) Lymph # (Auto) Lyman # (Auto) Eos # (Auto) Baso # (Auto) Nucleated RBC % (a uto) Nucleated RBCs # PT 14.70 INR 1.11 APTT 28.0 D-Dimer >= 20.00 H Sodium 138 Potassium 3.9 Chloride 102 Carbon Dioxide 25 Anion Gap 14.9 BUN 10 Creatinine 0.8 GFR Calculation Not Reportable Glucose 128 H Calculated Osmolal ity 287 Lactic Acid 3.0 H Lactic Acid (Sepsi s) Calcium 9.1 Magnesium 2.2 Total Bilirubin 0.4 AST 16 ALT 12 Alkaline Phosphata se 116 Creatine Kinase Troponin T Baselin e Troponin T 120 Min [place] Delta Troponin T NT-Pro-B Natriuret Pep Total Protein 7.6 Albumin 4.0 Globulin 3.6 Prostate Specific Ag Vitamin B12 03/06/20 20:33 WBC 11.8 H RBC 4.72 Hgb 13.1 Hct 42.6 MCV 90.3 MCH 27.8 L MCHC 30.8 RDW 13.7 Plt Count 203 MPV 11.7 H Neut % (Auto) 76.2 Lymph % (Auto) 15.7 Lyman % (Auto) 6.5 Eos % (Auto) 0.7 Baso % (Auto) 0.4 Neut # (Auto) 9.02 H Lymph # (Auto) 1.9 Lyman # (Auto) 0.8 Eos # (Auto) 0.1 Baso # (Auto) 0.1 Nucleated RBC % (a uto) 0 Nucleated RBCs # 0.0 PT INR APTT D-Dimer Sodium Potassium Chloride Carbon Dioxide Anion Gap BUN Creatinine GFR Calculation Glucose Calculated Osmolal ity Lactic Acid Lactic Acid (Sepsi s) Calcium Magnesium Total Bilirubin AST ALT Alkaline Phosphata se Creatine Kinase Troponin T Baselin e Troponin T 120 Min [place] Delta Troponin T NT-Pro-B Natriuret Pep Total Protein Albumin Globulin Prostate Specific Ag Vitamin B12 Vitals: Last Vital Signs Temp 98.5 F 03/07/20 11:21 Pulse 70 03/07/20 11:21 Resp 16 03/07/20 11:21 BP 116/73 03/07/20 11:21 Pulse Ox 96 03/07/20 11:21 TS Medications Medications Home Medications dutasteride 0.5 mg capsule 0.5 mg PO DAILY 12/12/19 [History Confirmed 03/07/20] tamsulosin 0.4 mg capsule 0.8 mg PO DAILY cap 12/12/19 [History Confirmed 03/07/20] Active Medications Heparin Sodium (Beef Lung) (Heparin 5,000 Unit/Ml Inj 1 Ml) 0 unit IV PRN PRN; Protocol PRN Reason: Heparin weight-base protocol Hydromorphone HCl (Hydromorphone 1 Mg/Ml Inj 1 Ml) 1 mg IVP Q4H PRN PRN Reason: AGITATION Heparin Sodium/Sodium Chloride (Heparin Drip) 25,000 unit in 500 mls @ 0 mls/hr IV .Q0M GUILHERME; Protocol Senna/Docusate Sodium (Sennosides-Docusate Tablet) 1 tab PO DAILY GUILHERME Last Admin: 03/07/20 10:06 Dose: 1 tab Documented by: Discharge Plan Discharge Patient Disposition: Xfer Other Condition: Stable Prescriptions: No Action tamsulosin [Flomax] 0.4 mg capsule 0.8 mg PO DAILY RF: 0 dutasteride [Avodart] 0.5 mg capsule 0.5 mg PO DAILY RF: 0 Discharge Orders: Transfer Out of Facility (Order); Ordered 03/07/20 Ordered By: Partha Gruloln Transfer Attestations Time Spent in Transfer Care*: greater than 30 min Quality Metrics Clinical Quality Measures: During this hospital stay, did patient experience: VTE Contraindication to Overlap Therapy: Overlap treatment not indicated VTE Discharge Education: Education about anticoagulant therapy/Care Notes given Coding Level of Care Code Acute Pressure Tester for Sharleneg Fwd Diagnoses DVT femoral (deep venous thrombosis) with thrombophlebitis I82.419 Left leg DVT I82.402 Prostate cancer C61
[2020-03-07 11:30] LABS: Prostate Specific Antigen 0.006 ng/mL (0-4)
[2020-03-07] MEDS: heparin 5,000 unit/mL INJ 1 mL IV (12:37)
[2020-03-07] MEDS: heparin drip 25,000 UNIT/500 ML PREMIX 28 UNIT IV (12:38)
[2020-03-07] MEDS: sodium chloride 0.9% 1,000 ML 75 ML IV (12:59)
[2020-03-07 14:05] LABS: SARS Covid-2 Antigen Negative (Negative)
--- NOTE | 2020-03-07 17:24 | PC.NURSE ---
PT DID WELL TODAY. NO COMPLAINTS OF PAIN. AROUND [id number] REPORT WAS CALLED TO ARIS BULL AT [facility] FOR THIS PT. PT LEFT WITH AMBULANCE PERSONNEL IN STABLE CONDITION. PTS LEG BAG HENDERSON WAS EMPTIED 3 TIMES TODAY BY THIS NURSE WITH A TOTAL OF 750 OUTPUT. THIS PT WAS ALSO SENT OUT WITH TWO IVS, ONE IN HIS LEFT FOREARM, HEPARIN RUNNING AT 28/HR, AND THE OTHER IN HIS RIGHT FOREARM WITH NS RUNNING AT 75/HR. PTS BELONGINGS WERE SENT WITH HIM.
== END 2020-03-07 15:30 | disposition other institution (70) ==
LOC: ER 03-07 01:03 → MEDSURG 03-07 06:43
PROVIDERS: Admitting Provider Internal Medicine; Emergency Provider Emergency Medicine; Visit Provider Family Medicine
DX: I82.402 Acute embolism and thrombosis of unspecified deep veins of left lower extremity (principal); I80.12 Phlebitis and thrombophlebitis of left femoral vein; C61 Malignant neoplasm of prostate; R06.00 Dyspnea, unspecified
CPT/HCPCS: 12345; 36415; 71275; 74176; 80048; 80053; 82550; 82607; 83605; 83735; 83880; 84153; 84484; 85025; 85378; 85610; 85730; 87040; 87426; 93922; 93971; 96360; 96361; 96365; 96372; 99283; 99285; G0378; J0690; J1644; J1650; J7030; Q9967

== ENCOUNTER 2022-01-28 15:55 | Outpatient (CLI) | payer MEDICARE, OTHER, SELFPAY ==
--- NOTE | 2022-01-28 16:23 | XR_ITS ---
WS: [id number] Chest 2 views, 01/29/2022 Clinical Data: HBO treatment for radiation cystitis screening Comparison: None. Findings: No nodules, masses or effusions are seen. The heart is normal. The pulmonary vascularity is not increased. No pneumonia or pneumothorax is seen. The aortic arch and descending thoracic aorta s how tortuosity. There is kyphosis of the thoracic spine with mild osteoarthritis. XR/XR chest 2V* [id number] Impression: Atherosclerosis.
--- NOTE | 2022-01-28 17:11 | ECG_ITS ---
[facility] Test Date: 2022-01-28 Pat Name: Mir Leger Department: Room: Gender: Male Radio Television Announcer: : 1940 Requested By: Giovanna Daly Order Number: [id number] Saleem MD: Francia Le M.D. Measurements Intervals [place] Rate: 84 P: 180 AR: 144 QRS: 221 QRSD: 86 T: 145 QT: 350 QTc: 415 Interpretive Statements ECTOPIC ATRIAL RHYTHM POSSIBLE ANTERIOR MYOCARDIAL INFARCTION , PROBABLY OLD No previous ECG available for comparison Electronically Signed On 01-30-2022 11:43:54 SOUND TECHNICIAN by Francia Le M.D. [email or web address]
[2022-01-28 17:14] LABS: Basophils # 0.1 10^3/uL (0.0-0.1); Basophils % 0.7 %; Eosinophils # 0.2 10^3/uL (0.0-0.8); Eosinophils % 1.7 %; Hematocrit 43.1 % (42.0-52.0); Hemoglobin 13.2 g/dL (11.7-16.6); Lymphocytes # 3.1 10^3/uL (0.8-4.8); Lymphocytes % 32.6 %; Mean Corpuscular HGB Conc 30.6 g/dL (30.0-36.0); Mean Corpuscular Hemoglobin 25.6 pg (28.0-34.0); Mean Corpuscular Volume 83.7 fl (80-94); Mean Platelet Volume 11.3 fL (7.4-10.4); Monocytes # 0.8 10^3/uL (0.2-0.9); Neutrophils # 5.43 10^3/uL (1.8-7.7); Neutrophils % 56.6 %; Nucleated Red Blood Cells % 0 %; Platelet Count 236 10^3/cmm (130-400); Red Blood Count 5.15 10^6/uL (4.1-5.3); Red Cell Distribution Width 15.9 % (12.1-15.1); White Blood Count 9.6 10^3/uL (4.0-10.0)
[2022-01-28 18:41] LABS: Alanine Aminotransferase 85 U/L (0-41); Albumin Level 4.1 g/dL (3.5-5.2); Alkaline Phosphatase 137 U/L (40-130); Anion Gap 18.7 (5-19); Aspartate Amino Transferase 87 U/L (0-40); Blood Urea Nitrogen 12 mg/dL (8-23); Calcium 9.4 mg/dL (8.5-10.5); Carbon Dioxide 20 mmol/L (22-29); Chloride 99 mmol/L (98-107); Glucose 119 mg/dL (65-115); Osmolality Calculated 279 mOsm/kg (285-295); Potassium 3.7 mmol/L (3.5-5.1); Prealbumin 16.9 mg/dL (20-40); Sodium 134 mmol/L (136-145); Total Bilirubin 0.2 mg/dL (0.15-1.2); Total Protein 8.1 g/dL (6.6-8.7)
== END 2022-01-28 15:56 | disposition home or self-care (01) ==
LOC: LAB 16:10
PROVIDERS: PCP Family Medicine; Visit Provider Nurse Practitioner Family
DX: Z13.6 Encounter for screening for cardiovascular disorders (principal); C61 Malignant neoplasm of prostate; N30.41 Irradiation cystitis with hematuria; I70.90 Unspecified atherosclerosis
CPT/HCPCS: 71046; 80053; 84134; 85025; 93005; 99213

== ENCOUNTER → 2022-02-03 08:05 | Outpatient (BNVA) | payer MEDICARE, OTHER, SELFPAY | PROVIDERS: PCP Family Medicine; Visit Provider Thoracic Surgery (Cardiothoracic Vascular Surgery) | DX: N30.41 Irradiation cystitis with hematuria (principal) | CPT/HCPCS: G0277 ==

== ENCOUNTER → 2022-02-04 12:54 | Outpatient (BNVA) | payer MEDICARE, OTHER, SELFPAY | PROVIDERS: PCP Family Medicine; Visit Provider Otolaryngology | DX: H69.83 Other specified disorders of Eustachian tube, bilateral (principal); Z91.89 Other specified personal risk factors, not elsewhere classified | CPT/HCPCS: 69433; 99203 ==

== ENCOUNTER → 2022-02-05 07:53 | Outpatient (BNVA) | payer MEDICARE, OTHER, SELFPAY | PROVIDERS: PCP Family Medicine; Visit Provider Thoracic Surgery (Cardiothoracic Vascular Surgery) | DX: N30.41 Irradiation cystitis with hematuria (principal) | CPT/HCPCS: G0277 ==

== ENCOUNTER → 2022-02-06 08:19 | Outpatient (BNVA) | payer MEDICARE, OTHER, SELFPAY | PROVIDERS: PCP Family Medicine; Visit Provider Nurse Practitioner Family | DX: N30.41 Irradiation cystitis with hematuria (principal) | CPT/HCPCS: G0277 ==

== ENCOUNTER → 2022-02-07 08:29 | Outpatient (BNVA) | payer MEDICARE, OTHER, SELFPAY | PROVIDERS: PCP Family Medicine; Visit Provider Otolaryngology | DX: Z91.89 Other specified personal risk factors, not elsewhere classified (principal) | CPT/HCPCS: 99212; 99213 ==